=== PATIENT | male | born 1970 | race Caucasian/White ===

== ENCOUNTER 2018-11-01 06:32 | Emergency (ER) | payer OTHER, SELFPAY ==
[2018-11-01] MEDS ORDERED: Ketorolac Tromethamine 60 MG/2 ML VIAL ONE (07:33)
--- NOTE | 2018-11-01 08:26 | RAD ---
RIGHT KNEE FOUR VIEWS: History: Fall. Right knee pain. FINDINGS: Degenerative changes are present. No acute fracture or dislocation is identified. POS: [facility]
== END 2018-11-01 08:02 | disposition home or self-care (01) ==
LOC: ERS 06:32
DX: S86.911A Strain of unspecified muscle(s) and tendon(s) at lower leg level, right leg, initial encounter (principal); F31.9 Bipolar disorder, unspecified; F20.9 Schizophrenia, unspecified; F17.210 Nicotine dependence, cigarettes, uncomplicated; W01.0XXA Fall on same level from slipping, tripping and stumbling without subsequent striking against object, initial encounter
CPT/HCPCS: 96372; J1885

== ENCOUNTER 2022-06-13 07:22 | Emergency (ER) | payer SELFPAY ==
[2022-06-13] MEDS ORDERED: HYDROcodone/Acetaminophen 5/325 mg Tablet ONE (08:35)
[2022-06-13] MEDS ORDERED: Dexamethasone 10 MG/ML VIAL ONE (08:37)
== END 2022-06-13 09:42 | disposition home or self-care (01) ==
LOC: ERS 07:22
DX: M17.12 Unilateral primary osteoarthritis, left knee (principal); F17.210 Nicotine dependence, cigarettes, uncomplicated
CPT/HCPCS: J1100

== ENCOUNTER 2023-05-12 09:05 | Outpatient (CLI) | payer OTHER ==
[2023-05-12 11:00] LABS: #Basophils 0.1 10x3/uL (0.0-0.2); #Eosinphils 0.2 10x3/uL (0.0-0.5); #Monocytes 0.4 10x3/uL (0.0-1.1); #Neutrophils 3.5 10x3/uL (1.5-8.4); %Basophils 1.4 % (0.0-2.0); %Eosinophils 2.7 % (0.0-6.0); %Lymphocytes 40.1 % (18.0-47.0); %Monocytes 5.5 % (0.0-10.0); Hematocrit 41.1 % (38.8-50.0); Hemoglobin 13.6 g/dL (13.5-17.5); Mean Corpuscular HGB CONC 33.1 g/dL (32.0-36.0); Mean Corpuscular Hemoglobin 31.9 pg (27.0-33.0); Mean Corpuscular Volume 96.3 fl (81.2-95.1); Mean Platelet Volume 9.5 fl (7.4-10.4); Platelet Count 244 10x3/uL (150-450); RBC Distribution Width 14.6 % (11.5-14.5); Red Blood Cell (RBC) Count 4.27 10x6/uL (4.32-5.72); White Blood Cell (WBC) Count 6.9 10x3/uL (3.5-10.5)
[2023-05-12 11:04] LABS: Prothrombin Time 11.1 sec (9.5-12.1)
[2023-05-12 11:26] LABS: Anion Gap 14 mmol/L (10-20); BUN (Urea Nitrogen) 12 mg/dL (8.4-25.7); Calc. Creatinine Clearance 0 mL/min (70-130); Calcium 9.1 mg/dL (7.8-10.44); Carbon Dioxide 23 mmol/L (22-29); Chloride 105 mmol/L (98-107); Estimated GFR 99; Glucose 89 mg/dL (70-105); Potassium 4.3 mmol/L (3.5-5.1); Sodium 138 mmol/L (136-145)
== END 2023-05-12 09:06 | disposition home or self-care (01) ==
LOC: LABBT 09:05
PROVIDERS: ATTEND Orthopaedic Surgery
DX: Z01.818 Encounter for other preprocedural examination (principal); M17.12 Unilateral primary osteoarthritis, left knee
CPT/HCPCS: 80048; 85025; 85610; 87081; 93005; 93010

== ENCOUNTER 2023-05-17 06:55 | Inpatient (IN) | payer OTHER ==
[2023-05-12 09:50] VITALS: BMI 23.7
[2023-05-17] MEDS ORDERED: Vancomycin (BATCH) 1.5 GRAM/300 ML BAG ONE (07:52)
[2023-05-17] MEDS ORDERED: Sodium Chloride 0.9% 100 ML ONE ×2 (07:52→09:38)
[2023-05-17] MEDS ORDERED: Tranexamic Acid 1,000 MG/10 ML VIAL ONE (07:52)
[2023-05-17] MEDS ORDERED: fentaNYL 50 mcg/mL 1 mL Vial ONE ×3 (08:05→12:05)
[2023-05-17] MEDS ORDERED: Midazolam HCl 2 mg/2 ml Vial ONE (08:05)
[2023-05-17] MEDS ORDERED: Bupivacaine PF 0.5% 30 ML VIAL ONE (08:05)
[2023-05-17] MEDS ORDERED: EPINEPHrine 1 MG/ML AMP ONE ×2 (08:05→09:27)
[2023-05-17] MEDS ORDERED: fentaNYL 50 mcg/mL 1 mL Vial SLOW IVP PRN (08:49)
[2023-05-17] MEDS ORDERED: traMADol HCl 50 MG TAB PO PRN ×2 (09:00)
[2023-05-17] MEDS ORDERED: Zolpidem Tartrate 5 MG TAB PO PRN ×2 (09:00→12:00)
[2023-05-17] MEDS ORDERED: HYDROcodone/Acetaminophen 10/325 mg Tablet PO PRN (09:00)
[2023-05-17] MEDS ORDERED: Promethazine HCl 25 MG/ML VIAL IM PRN ×3 (09:00→12:00)
[2023-05-17] MEDS ORDERED: Ondansetron PF 4 MG/2 ML Vial IVP PRN ×2 (09:00→12:00)
[2023-05-17] MEDS ORDERED: Ropivacaine 0.2% 550 ML 550 ML NERVE BLCK SCH (09:00)
[2023-05-17] MEDS ORDERED: Bupivacaine 0.25% HCL 30 ML VIAL ONE (09:27)
[2023-05-17] MEDS ORDERED: HYDROmorphone 0.5 MG/0.5 ML SYRINGE ONE ×3 (09:35→12:47)
[2023-05-17] MEDS ORDERED: CEFAZOLIN 2 GM VIAL ONE (09:38)
[2023-05-17] MEDS ORDERED: ePHEDrine Sulfate 50 MG/10 ML VIAL ONE (09:59)
[2023-05-17] MEDS ORDERED: Ondansetron PF 4 MG/2 ML Vial ONE (09:59)
[2023-05-17] MEDS ORDERED: PROPOFOL 200 MG/20 ML VIAL ONE (09:59)
[2023-05-17] MEDS ORDERED: HYDROmorphone 2 MG/ML VIAL ONE (10:26)
[2023-05-17] MEDS ORDERED: Ondansetron HCl/PF 4 MG/2 ML Vial IVP PRN (11:45)
[2023-05-17] MEDS ORDERED: HYDROmorphone 2 MG/ML VIAL SLOW IVP PRN (11:45)
[2023-05-17] MEDS ORDERED: diphenhydrAMINE 25 MG CAP PO PRN (12:00)
[2023-05-17] MEDS ORDERED: Acetaminophen 325 MG TAB PO PRN (12:00)
[2023-05-17] MEDS ORDERED: Ketorolac Tromethamine 30 MG/ML VIAL ONE (12:12)
[2023-05-17] MEDS: Ketorolac Tromethamine 30 MG/ML VIAL IVP SCH ×3 (12:27→23:07)
[2023-05-17] MEDS: HYDROcodone/Acetaminophen 10/325 mg Tablet PO PRN ×2 (15:10→20:34)
[2023-05-17] MEDS: Sodium Chloride 0.9% 1,000 ML IV SCH ×2 (17:56→20:35)
[2023-05-17] MEDS: CEFAZOLIN 2 GM in Sodium Chloride 0.9% 100 ML IVPB SCH (18:09)
[2023-05-17] MEDS: Aspirin 81 mg Enteric Coated Tablet PO SCH (20:34)
[2023-05-18] MEDS: HYDROcodone/Acetaminophen 10/325 mg Tablet PO PRN ×6 (01:24→21:45)
[2023-05-18] MEDS: CEFAZOLIN 2 GM in Sodium Chloride 0.9% 100 ML IVPB SCH (01:24)
[2023-05-18] MEDS: Ketorolac Tromethamine 30 MG/ML VIAL IVP SCH ×3 (05:05→17:34)
[2023-05-18 05:40] LABS: Hematocrit 33.9 % (42.0-52.0); Hemoglobin 11.1 g/dL (14.0-18.0); Mean Corpuscular HGB CONC 32.7 g/dL (32.0-36.0); Mean Corpuscular Hemoglobin 32.6 pg (27.0-31.0); Mean Corpuscular Volume 99.4 fl (78.0-98.0); Mean Platelet Volume 9.3 fL (7.4-10.4); Platelet Count 172 10x3/uL (130-400); RBC Distribution Width 13.9 % (11.5-14.5); Red Blood Cell (RBC) Count 3.41 mill/uL (4.70-6.10); White Blood Cell (WBC) Count 6.5 10x3/uL (4.8-10.8)
[2023-05-18] MEDS: Multivitamin W/ Minerals 1 TAB PO SCH (08:27)
[2023-05-18] MEDS: Senokot S 8.6-50 MG TAB PO SCH ×2 (08:27→21:09)
[2023-05-18] MEDS: Ferrous Gluconate 324 MG TAB PO SCH ×2 (08:27→21:10)
[2023-05-18] MEDS: Aspirin 81 mg Enteric Coated Tablet PO SCH ×2 (08:27→21:09)
[2023-05-18] MEDS: Sodium Chloride 0.9% 1,000 ML IV SCH ×2 (08:29→17:58)
[2023-05-19] MEDS: Ketorolac Tromethamine 30 MG/ML VIAL IVP SCH ×2 (00:20→05:35)
[2023-05-19] MEDS: HYDROcodone/Acetaminophen 10/325 mg Tablet PO PRN ×3 (02:30→11:01)
[2023-05-19] MEDS: Sodium Chloride 0.9% 1,000 ML IV SCH (03:27)
[2023-05-19 05:19] LABS: Hematocrit 32.7 % (42.0-52.0); Mean Corpuscular HGB CONC 33.6 g/dL (32.0-36.0); Mean Corpuscular Hemoglobin 32.4 pg (27.0-31.0); Mean Corpuscular Volume 96.5 fl (78.0-98.0); Mean Platelet Volume 9.5 fL (7.4-10.4); Platelet Count 144 10x3/uL (130-400); RBC Distribution Width 13.2 % (11.5-14.5); Red Blood Cell (RBC) Count 3.39 mill/uL (4.70-6.10); White Blood Cell (WBC) Count 6.1 10x3/uL (4.8-10.8)
[2023-05-19] MEDS: Aspirin 81 mg Enteric Coated Tablet PO SCH (09:14)
[2023-05-19] MEDS: Senokot S 8.6-50 MG TAB PO SCH (09:14)
[2023-05-19] MEDS: Ferrous Gluconate 324 MG TAB PO SCH (09:14)
[2023-05-19] MEDS: Multivitamin W/ Minerals 1 TAB PO SCH (09:14)
[2023-05-19 11:54] VITALS: BP 169/95; TEMP 98.4
== END 2023-05-19 12:38 | disposition home or self-care (01) | DRG 470 ==
LOC: SDC 06:55 → SURG A 12:00 → OBSVTOIN 05-18 08:59
PROVIDERS: ADMIT Orthopaedic Surgery; ATTEND Orthopaedic Surgery
PROC: 0SRD0J9 Replacement of Left Knee Joint with Synthetic Substitute, Cemented, Open Approach (ICD-10-PCS; principal; 2023-05-17)
DX: M17.12 Unilateral primary osteoarthritis, left knee (principal); I10 Essential (primary) hypertension; G89.29 Other chronic pain; Z86.73 Personal history of transient ischemic attack (TIA), and cerebral infarction without residual deficits; Z79.82 Long term (current) use of aspirin; Z79.01 Long term (current) use of anticoagulants; Z79.899 Other long term (current) drug therapy; Z87.891 Personal history of nicotine dependence
CPT/HCPCS: 36415; 85027; A4306; C1776; J0171; J1170; J1885; J2250; J2405; J2704; J2795; J3010; J3370; J3490; S0020

== ENCOUNTER 2023-06-27 13:12 | Emergency (ER) | payer OTHER ==
[2023-06-27] MEDS ORDERED: Lorazepam 1 MG TAB ONE ×2 (13:54→13:55)
[2023-06-27] MEDS ORDERED: Haloperidol Lactate 5 MG/ML VIAL ONE (14:04)
[2023-06-27 14:23] LABS: Bacteria/HPF None Seen HPF (None Seen); Bilirubin Negative (Negative); Blood, Urine Negative (Negative); CAUTI Indications for Culture Alt mental st,lethar; Clarity Clear (Clear); Glucose, Urine (Dipstick) Normal (Negative); Ketone, Urine Negative (Negative); Leukocyte Negative Leu/uL (Negative); Nitrite Negative (Negative); Protein, Urine (Dipstick) Negative (Neg-Trace); RBC/HPF 0-3 HPF (0-3); Specific Gravity, Urine 1.005 (1.002-1.036); Squamous Epithelial 0-3 HPF (0-3); Urobilinogen Normal mg/dL (Less than 2); WBC/HPF 0-3 HPF (0-3)
[2023-06-27 14:24] LABS: Urine Culture Reflex No No
[2023-06-27 14:28] LABS: Amphetamine Not Detected (NotDetected); Barbiturates Screen Not Detected (NotDetected); Benzodiazepine Screen Not Detected (NotDetected); Cocaine Metabolite Screen Not Detected (NotDetected); Methadone Not Detected (NotDetected); Methamphetamine Not Detected (NotDetected); Opiate Screen Not Detected (NotDetected); Oxycodone Screen Not Detected (NotDetected); Phencyclidine (PCP) Not Detected (NotDetected); THC/Cannabinoid Screen Not Detected (NotDetected); Tricyclic Screen Not Detected (NotDetected)
[2023-06-27 15:39] LABS: #Basophils 0.1 thou/uL (0.0-0.2); #Eosinphils 0.3 thou/uL (0.0-0.7); #Monocytes 0.3 thou/uL (0.11-0.59); #Neutrophils 2.7 thou/uL (1.40-6.50); %Basophils 1.1 % (0.0-1.0); %Eosinophils 4.5 % (0.0-10.0); %Lymphocytes 47.1 % (21.0-51.0); %Monocytes 4.5 % (0.0-10.0); %Neutrophils 42.5 % (42.0-75.0); Hematocrit 35.1 % (42.0-52.0); Hemoglobin 11.7 g/dL (14.0-18.0); Mean Corpuscular HGB CONC 33.3 g/dL (32.0-36.0); Mean Corpuscular Hemoglobin 31.5 pg (27.0-31.0); Mean Corpuscular Volume 94.6 fl (78.0-98.0); Mean Platelet Volume 8.9 fL (7.4-10.4); Platelet Count 187 10x3/uL (130-400); Red Blood Cell (RBC) Count 3.71 mill/uL (4.70-6.10); White Blood Cell (WBC) Count 6.3 10x3/uL (4.8-10.8)
[2023-06-27 15:56] LABS: ALT (SGPT) 51 U/L (8-55); AST (SGOT) 29 U/L (5-34); Acetaminophen Less than 10 mcg/mL (10.0-30.0); Albumin 3.9 g/dL (3.5-5.0); Alcohol 82.9 mg/dL (Less than 10); Alkaline Phosphatase 101 U/L (40-110); Anion Gap 13 mmol/L (10-20); BUN (Urea Nitrogen) 10 mg/dL (8.4-25.7); Bilirubin, Total 0.5 mg/dL (0.2-1.2); Calc. Creatinine Clearance 0 mL/min (70-130); Calcium 9.3 mg/dL (7.8-10.44); Carbon Dioxide 22 mmol/L (22-29); Chloride 106 mmol/L (98-107); Estimated GFR 109; Globulin 3.1 g/dL (2.4-3.5); Glucose 94 mg/dL (70-105); Potassium 3.7 mmol/L (3.5-5.1); Salicylate Less than 8.0 mg/dL (15.0-30.0); Sodium 137 mmol/L (136-145)
[2023-06-27] MEDS ORDERED: HYDROcodone/Acetaminophen 5/325 mg Tablet ONE (18:38)
[2023-06-28] MEDS ORDERED: Gabapentin 300 MG CAP PO SCH (08:00)
[2023-06-28] MEDS ORDERED: Lisinopril 20 MG TAB PO SCH (08:00)
[2023-06-28] MEDS ORDERED: Atorvastatin Calcium 40 MG TAB PO SCH (08:00)
[2023-06-28] MEDS ORDERED: Clopidogrel Bisulfate 75 MG TAB ONE (09:38)
[2023-06-28] MEDS ORDERED: Nicotine 14 MG PATCH ONE (09:38)
== END 2023-06-28 10:33 ==
LOC: ERS 13:12
DX: T14.91XA Suicide attempt, initial encounter (principal); S61.512A Laceration without foreign body of left wrist, initial encounter; F17.210 Nicotine dependence, cigarettes, uncomplicated; I10 Essential (primary) hypertension; Z79.899 Other long term (current) drug therapy; Z79.82 Long term (current) use of aspirin; X78.1XXA Intentional self-harm by knife, initial encounter
CPT/HCPCS: 12002; 36415; 80053; 80306; 80307; 81001; 84443; 85025; 93005; 96372; J1630

== ENCOUNTER 2023-08-31 08:55 | Emergency (ER) | payer OTHER | END 2023-08-31 09:35 | disposition home or self-care (01) | LOC: ERS 08:55 | DX: B83.9 Helminthiasis, unspecified (principal); I10 Essential (primary) hypertension; F17.210 Nicotine dependence, cigarettes, uncomplicated; Z79.82 Long term (current) use of aspirin; Z79.899 Other long term (current) drug therapy | CPT/HCPCS: 99282 ==

== ENCOUNTER 2023-09-09 15:17 | Outpatient (CLI) | payer OTHER ==
[2023-09-09 16:54] LABS: #Basophils 0.1 10x3/uL (0.0-0.2); #Eosinphils 0.6 10x3/uL (0.0-0.5); #Monocytes 0.6 10x3/uL (0.0-1.1); #Neutrophils 3.9 10x3/uL (1.5-8.4); %Basophils 0.9 % (0.0-2.0); %Eosinophils 5.8 % (0.0-6.0); %Lymphocytes 51.8 % (18.0-47.0); %Monocytes 5.1 % (0.0-10.0); Hematocrit 41.4 % (38.8-50.0); Hemoglobin 13.5 g/dL (13.5-17.5); Mean Corpuscular HGB CONC 32.6 g/dL (32.0-36.0); Mean Corpuscular Hemoglobin 29.7 pg (27.0-33.0); Platelet Count 294 10x3/uL (150-450); Prothrombin Time 10.5 sec (9.5-12.1); Red Blood Cell (RBC) Count 4.55 10x6/uL (4.32-5.72); White Blood Cell (WBC) Count 10.8 10x3/uL (3.5-10.5)
[2023-09-09 17:06] LABS: Anion Gap 11 mmol/L (10-20); BUN (Urea Nitrogen) 17 mg/dL (8.4-25.7); Calc. Creatinine Clearance 0 mL/min (70-130); Calcium 9.1 mg/dL (7.8-10.44); Carbon Dioxide 26 mmol/L (22-29); Chloride 104 mmol/L (98-107); Estimated GFR 108; Glucose 102 mg/dL (70-105); Potassium 4.2 mmol/L (3.5-5.1); Sodium 137 mmol/L (136-145)
== END 2023-09-09 15:18 | disposition home or self-care (01) ==
LOC: LABBT 15:17
PROVIDERS: ATTEND Orthopaedic Surgery
DX: Z01.818 Encounter for other preprocedural examination (principal); M17.11 Unilateral primary osteoarthritis, right knee
CPT/HCPCS: 80048; 85025; 85610; 87081; 93005; 93010

== ENCOUNTER 2023-09-13 07:16 | Observation (INO) | payer OTHER ==
[2023-09-09 16:12] VITALS: BMI 25.0
[2023-09-13] MEDS ORDERED: Sodium Chloride 0.9% 100 ML ONE ×2 (07:57→09:13)
[2023-09-13] MEDS ORDERED: Vancomycin (BATCH) 1.5 GM/300 ML BAG ONE (07:58)
[2023-09-13] MEDS ORDERED: Tranexamic Acid 1,000 MG/10 ML VIAL ONE (08:26)
[2023-09-13] MEDS ORDERED: EPINEPHrine 1 MG/ML VIAL ONE ×2 (09:04→09:13)
[2023-09-13] MEDS ORDERED: Bupivacaine PF 0.5% 30 ML VIAL ONE (09:04)
[2023-09-13] MEDS ORDERED: Midazolam HCl 2 mg/2 ml Vial ONE (09:04)
[2023-09-13] MEDS ORDERED: fentaNYL 50 mcg/mL 1 mL Vial ONE ×3 (09:04→14:32)
[2023-09-13] MEDS ORDERED: Bupivacaine 0.25% HCL 30 ML VIAL ONE (09:13)
[2023-09-13] MEDS ORDERED: CEFAZOLIN 2 GM VIAL ONE (09:13)
[2023-09-13] MEDS ORDERED: PROPOFOL 20 ML ONE (09:35)
[2023-09-13] MEDS ORDERED: Dexamethasone 20 MG/5 ML VIAL ONE (09:40)
[2023-09-13] MEDS ORDERED: Ondansetron PF 4 MG/2 ML Vial ONE ×2 (09:40→11:11)
[2023-09-13] MEDS ORDERED: Ketorolac Tromethamine 30 MG/ML VIAL ONE ×2 (09:40→11:11)
[2023-09-13] MEDS ORDERED: Lidocaine 1% PF 5 ML VIAL ONE (09:40)
[2023-09-13] MEDS ORDERED: PROPOFOL 200 MG/20 ML VIAL ONE (09:40)
[2023-09-13] MEDS ORDERED: fentaNYL 50 mcg/mL 1 mL Vial SLOW IVP PRN (09:45)
[2023-09-13] MEDS ORDERED: Ondansetron PF 4 MG/2 ML Vial IVP PRN ×2 (09:45→11:47)
[2023-09-13] MEDS ORDERED: traMADol HCl 50 MG TAB PO PRN ×2 (09:45)
[2023-09-13] MEDS ORDERED: Zolpidem Tartrate 5 MG TAB PO PRN ×2 (09:45→11:47)
[2023-09-13] MEDS ORDERED: HYDROcodone/Acetaminophen 10/325 mg Tablet PO PRN (09:45)
[2023-09-13] MEDS ORDERED: Ropivacaine 0.2% 550 ML 550 ML NERVE BLCK SCH (09:45)
[2023-09-13] MEDS ORDERED: Promethazine HCl 25 MG/ML VIAL IM PRN ×2 (09:45→11:47)
[2023-09-13] MEDS ORDERED: PHENYLEPHRINE-NS 100 MCG/ML 10 ML SYRINGE ONE (09:53)
[2023-09-13] MEDS ORDERED: HYDROmorphone 2 MG/ML VIAL ONE (10:15)
[2023-09-13] MEDS ORDERED: Meperidine HCl/PF 25 MG/ML VIAL ONE (11:36)
[2023-09-13] MEDS ORDERED: Acetaminophen 325 MG TAB PO PRN (11:47)
[2023-09-13] MEDS ORDERED: diphenhydrAMINE 25 MG CAP PO PRN (11:47)
[2023-09-13] MEDS ORDERED: HYDROmorphone 0.5 MG/0.5 ML SYRINGE ONE ×2 (12:04→12:21)
[2023-09-13] MEDS: Sodium Chloride 0.9% 1,000 ML IV SCH ×2 (14:58→22:16)
[2023-09-13] MEDS: HYDROcodone/Acetaminophen 10/325 mg Tablet PO PRN ×2 (15:50→20:38)
[2023-09-13] MEDS: Ketorolac Tromethamine 30 MG/ML VIAL IVP SCH ×2 (16:06→17:23)
[2023-09-13] MEDS: CEFAZOLIN 2 GM in Sodium Chloride 0.9% 100 ML IVPB SCH (16:36)
[2023-09-13] MEDS: Aspirin 81 mg Enteric Coated Tablet PO SCH (20:38)
[2023-09-14] MEDS: Ketorolac Tromethamine 30 MG/ML VIAL IVP SCH ×2 (00:04→06:26)
[2023-09-14] MEDS: CEFAZOLIN 2 GM in Sodium Chloride 0.9% 100 ML IVPB SCH (00:05)
[2023-09-14] MEDS: HYDROcodone/Acetaminophen 10/325 mg Tablet PO PRN ×2 (02:16→08:56)
[2023-09-14 05:08] LABS: Hematocrit 33.2 % (42.0-52.0); Hemoglobin 10.9 g/dL (14.0-18.0); Mean Corpuscular HGB CONC 32.8 g/dL (32.0-36.0); Mean Corpuscular Hemoglobin 30.8 pg (27.0-31.0); Mean Corpuscular Volume 93.8 fl (78.0-98.0); Mean Platelet Volume 9.5 fL (7.4-10.4); Platelet Count 222 10x3/uL (130-400); RBC Distribution Width 13.7 % (11.5-14.5); Red Blood Cell (RBC) Count 3.54 mill/uL (4.70-6.10); White Blood Cell (WBC) Count 11.5 10x3/uL (4.8-10.8)
[2023-09-14] MEDS ORDERED: Ferrous Gluconate 324 MG TAB PO SCH (08:00)
[2023-09-14 08:35] VITALS: BP 163/98; TEMP 97.9
[2023-09-14] MEDS: Aspirin 81 mg Enteric Coated Tablet PO SCH (08:51)
[2023-09-14] MEDS: Sodium Chloride 0.9% 1,000 ML IV SCH (08:53)
[2023-09-14] MEDS ORDERED: Senokot S 8.6-50 MG TAB PO SCH (09:00)
[2023-09-14] MEDS ORDERED: Lisinopril 20 MG TAB PO SCH (09:00)
[2023-09-14] MEDS ORDERED: Multivitamin W/ Minerals 1 TAB PO SCH (09:00)
== END 2023-09-14 10:58 | disposition home or self-care (01) ==
LOC: SDC 07:16 → SURG B 14:40
PROVIDERS: ADMIT Orthopaedic Surgery; ATTEND Orthopaedic Surgery
PROC: 0SRC0JZ Replacement of Right Knee Joint with Synthetic Substitute, Open Approach (ICD-10-PCS; principal; 2023-09-13)
DX: M17.11 Unilateral primary osteoarthritis, right knee (principal); I10 Essential (primary) hypertension; M19.011 Primary osteoarthritis, right shoulder; F17.200 Nicotine dependence, unspecified, uncomplicated; Z79.899 Other long term (current) drug therapy
CPT/HCPCS: 36415; 85027; 96374; 96375; 96376; A4306; C1713; C1776; G0378; J0171; J1100; J1170; J1885; J2175; J2250; J2405; J2704; J2795; J3010; J3370; J3490; J7050; S0020